=== PATIENT | male | born 1940 | race Caucasian/White ===

== ENCOUNTER 2017-11-04 19:43 | Emergency (ER) | payer OTHER ==
[~2017-11-04] VITALS: Ht 165.1 cm; Wt 68.0 kg
[~2017-11-04 19:43] MED LIST: ALTACE5 MG; CATAFLAM50 MG PO; NEURONTIN300 MG; NORVASC2.5 M1; TAMS0.4C; ZOLOFT25 MG
[2017-11-04] MEDS ORDERED: GLUCOTROL10 MG (19:55)
[2017-11-04] MEDS ORDERED: NAMENDA5 MG (19:56)
[2017-11-05] MEDS ORDERED: XOPENEX0.63 MG/3 IH (18:35)
[2017-11-05] MEDS ORDERED: LEVAQUIN500 MG PO (18:35)
[2017-11-05] MEDS ORDERED: LANZOPRAZOLE PO (18:35)
== END 2017-11-05 20:08 | disposition home or self-care (01) ==
LOC: ER 19:43
DX: R06.02 Shortness of breath (principal); R50.9 Fever, unspecified; N39.0 Urinary tract infection, site not specified

== ENCOUNTER 2018-03-13 04:04 | Inpatient (IN) | payer OTHER ==
[~2018-03-13] VITALS: Ht 177.8 cm; Wt 72.6 kg
[~2018-03-13 04:04] MED LIST changes: +GLUCOTROL10 MG; +LANZOPRAZOLE PO; +LEVAQUIN500 MG PO; +NAMENDA5 MG; +XOPENEX0.63 MG/3 IH
[2018-03-20] MEDS ORDERED: XOPENEX0.63 MG/3 IH (09:23)
[2018-03-20] MEDS ORDERED: NORVASC2.5 M1 PO ×2 (09:23→14:24)
[2018-03-20] MEDS ORDERED: ALTACE5 MG PO (09:24)
[2018-03-20] MEDS ORDERED: SERTRALINE HCL100 MG PO (14:24)
[2018-03-20] MEDS ORDERED: NEURONTIN300 MG PO (14:24)
[2018-03-20] MEDS ORDERED: NAMENDA10 MG PO (14:24)
[2018-03-20] MEDS ORDERED: ZANTAC150 MG PO (14:24)
[2018-03-20] MEDS ORDERED: GLUCOTROL10 MG PO (14:24)
[2018-03-20] MEDS ORDERED: RAMIPRIL5 MG PO (14:24)
== END 2018-03-20 16:32 | disposition home health service (06) | DRG 177 ==
LOC: ER 04:04 → SEC-K 08:32 → MEDJ 08:32
PROC: 4A033R1 Measurement of Arterial Saturation, Peripheral, Percutaneous Approach (ICD-10-PCS; 2018-03-13)
PROC: 3E0F7GC Introduction of Other Therapeutic Substance into Respiratory Tract, Via Natural or Artificial Opening (ICD-10-PCS; 2018-03-13)
PROC: 0DH63UZ Insertion of Feeding Device into Stomach, Percutaneous Approach (ICD-10-PCS; principal; 2018-03-18)
DX: J69.0 Pneumonitis due to inhalation of food and vomit (principal); A41.9 Sepsis, unspecified organism; N39.0 Urinary tract infection, site not specified; G10 Huntington's disease; F02.80 Dementia in other diseases classified elsewhere, unspecified severity, without behavioral disturbance, psychotic disturbance, mood disturbance, and anxiety; R13.19 Other dysphagia; B95.2 Enterococcus as the cause of diseases classified elsewhere; K21.9 Gastro-esophageal reflux disease without esophagitis; I10 Essential (primary) hypertension; T17.328A Food in larynx causing other injury, initial encounter; Z74.01 Bed confinement status; L89.151 Pressure ulcer of sacral region, stage 1

== ENCOUNTER 2019-02-04 01:19 | Inpatient (IN) | payer OTHER ==
[~2019-02-04] VITALS: Ht 182.9 cm; Wt 72.6 kg
[~2019-02-04 01:19] MED LIST changes: +ALTACE5 MG PO; +GLUCOTROL10 MG PO; +NAMENDA10 MG PO; +NEURONTIN300 MG PO; +NORVASC2.5 M1 PO; +RAMIPRIL5 MG PO; +SERTRALINE HCL100 MG PO; +ZANTAC150 MG PO
== END 2019-02-26 21:56 | disposition expired | DRG 208 ==
LOC: ER 01:19 → ICU-2 12:57 → ICU 12:57
PROVIDERS: ADMIT Internal Medicine
PROC: 4A033R1 Measurement of Arterial Saturation, Peripheral, Percutaneous Approach (ICD-10-PCS; principal; 2019-02-04)
PROC: 3E0F7GC Introduction of Other Therapeutic Substance into Respiratory Tract, Via Natural or Artificial Opening (ICD-10-PCS; 2019-02-04)
PROC: 02HV33Z Insertion of Infusion Device into Superior Vena Cava, Percutaneous Approach (ICD-10-PCS; 2019-02-06)
PROC: B54DZZZ Ultrasonography of Bilateral Lower Extremity Veins (ICD-10-PCS; 2019-02-07)
PROC: 8E0ZXY6 Isolation (ICD-10-PCS; 2019-02-10)
PROC: 0BH17EZ Insertion of Endotracheal Airway into Trachea, Via Natural or Artificial Opening (ICD-10-PCS; 2019-02-14)
PROC: 5A1945Z Respiratory Ventilation, 24-96 Consecutive Hours (ICD-10-PCS; 2019-02-14)
PROC: 30233N1 Transfusion of Nonautologous Red Blood Cells into Peripheral Vein, Percutaneous Approach (ICD-10-PCS; 2019-02-16)
PROC: 4A12X4Z Monitoring of Cardiac Electrical Activity, External Approach (ICD-10-PCS; 2019-02-18)
PROC: B246ZZZ Ultrasonography of Right and Left Heart (ICD-10-PCS; 2019-02-18)
PROC: 0DH67UZ Insertion of Feeding Device into Stomach, Via Natural or Artificial Opening (ICD-10-PCS; 2019-02-26)
PROC: 3E0G76Z Introduction of Nutritional Substance into Upper GI, Via Natural or Artificial Opening (ICD-10-PCS; 2019-02-26)
DX: J96.01 Acute respiratory failure with hypoxia (principal); R65.21 Severe sepsis with septic shock; J69.0 Pneumonitis due to inhalation of food and vomit; J44.1 Chronic obstructive pulmonary disease with (acute) exacerbation; N17.8 Other acute kidney failure; G10 Huntington's disease; N39.0 Urinary tract infection, site not specified; E11.65 Type 2 diabetes mellitus with hyperglycemia; Z79.4 Long term (current) use of insulin; G30.0 Alzheimer's disease with early onset; F02.80 Dementia in other diseases classified elsewhere, unspecified severity, without behavioral disturbance, psychotic disturbance, mood disturbance, and anxiety; I95.89 Other hypotension; R31.0 Gross hematuria; E86.0 Dehydration; E87.8 Other disorders of electrolyte and fluid balance, not elsewhere classified; E11.22 Type 2 diabetes mellitus with diabetic chronic kidney disease; N18.2 Chronic kidney disease, stage 2 (mild); I12.9 Hypertensive chronic kidney disease with stage 1 through stage 4 chronic kidney disease, or unspecified chronic kidney disease; E11.40 Type 2 diabetes mellitus with diabetic neuropathy, unspecified; Z74.01 Bed confinement status; Z88.0 Allergy status to penicillin; R13.13 Dysphagia, pharyngeal phase; K21.9 Gastro-esophageal reflux disease without esophagitis; N39.8 Other specified disorders of urinary system; Z66 Do not resuscitate; I48.0 Paroxysmal atrial fibrillation; B96.4 Proteus (mirabilis) (morganii) as the cause of diseases classified elsewhere; D64.89 Other specified anemias